=== PATIENT | female | born 1950 | race African-American/Black ===

== ENCOUNTER 2017-11-04 21:59 | Inpatient (IN) | payer MEDICARE, MEDICAID ==
[~2017-11-04] VITALS: Ht 167.6 cm; Wt 77.6 kg
[2017-11-05 04:34] LABS: CHLORIDE 107 mEq/L (98-107)
[2017-11-05 04:35] LABS: INR 2.6; PROTHROMBIN TIME 26.8 sec (9.4-11.6)
[2017-11-05 04:45] LABS: HEMATOCRIT. 34.1 % (36.0-48.0); HEMOGLOBIN. 11.8 g/dL (12.0-16.0); MEAN CORPUSCULAR HEMOGLOBIN 32.1 pg (28.0-32.0); MEAN PLATELET VOLUME 8.8 fl (7.4-10.4); PLATELET 343 x1000/uL (130-400); RED BLOOD CELL COUNT 3.67 mill/uL (4.2-5.4); RED CELL DISTRIBUTION WIDTH 17.3 % (11.6-14.6)
[2017-11-05 05:18] LABS: PLATELET ESTIMATE NORMAL
[2017-11-05 05:43] LABS: CLARITY URINE CLOUDY (CLEAR); COLOR URINE DARK YELLOW (YELLOW); KETONES URINE NEGATIVE (NEGATIVE); LEUKOCYTE ESTERASE URINE 3+ (NEGATIVE); NITRITE URINE POSITIVE (NEGATIVE); OCCULT BLOOD URINE 2+ (NEGATIVE); PH URINE 5.5 (4.5-8.0); PROTEIN URINE 1+ (NEGATIVE); SPECIFIC GRAVITY URINE 1.022 (1.005-1.030)
[2017-11-05] MEDS ORDERED: POTASSIUM CHLORIDE 20MEQ TABLET SR PO ONE ×2 (06:00→19:30)
[2017-11-05] MEDS ORDERED: KCL 20MEQ/100ML PREMIX 100 ML IV ONE ×2 (06:00)
[2017-11-05] MEDS ORDERED: CEPHALEXIN 500MG CAPSULE PO ONE (06:15)
[2017-11-05 09:08] VITALS: BP 123/63
[2017-11-05 09:17] VITALS: BP 123/63
[2017-11-05] MEDS ORDERED: ERGO400T7 PO (09:30)
[2017-11-05] MEDS ORDERED: CHLO25TA2 PO (09:30)
[2017-11-05] MEDS ORDERED: RIVA20TA PO (09:30)
[2017-11-05] MEDS ORDERED: AMLO5TAB88 PO (09:30)
[2017-11-05] MEDS ORDERED: GABA-529 PO (09:30)
[2017-11-05] MEDS ORDERED: BACL-141 PO (09:30)
[2017-11-05] MEDS ORDERED: CITA20TA75 PO (09:30)
[2017-11-05] MEDS ORDERED: IPRATROPIUM/ALBUTEROL 0.5-3(2.5)MG/3ML NEB INH PRN (11:45)
[2017-11-05] MEDS ORDERED: ACETAMINOPHEN 650MG SUPP PR PRN (11:45)
[2017-11-05] MEDS ORDERED: ONDANSETRON HCL 4MG/2ML VIAL IV PRN (11:45)
[2017-11-05] MEDS: PANTOPRAZOLE SODIUM 40 MG/VIAL IV SCH (12:07)
[2017-11-05 12:53] LABS: HEPATITIS B SURFACE ANTIGEN NEGATIVE
[2017-11-05] MEDS: SODIUM CHL 0.45% + KCL 20MEQ/L 1,000 ML IV SCH ×2 (13:00→14:25)
[2017-11-05] MEDS: PIPERACILLIN/TAZ 3.375G PREMIX 50 ML IV SCH ×3 (13:00→21:36)
[2017-11-05 13:21] LABS: HEPATITIS B CORE AB IGM NEGATIVE
[2017-11-05 13:23] LABS: HEPATITIS A AB IGM NEGATIVE (NEGATIVE)
[2017-11-05] MEDS ORDERED: IOHEXOL-300 100 ML BOTTLE ONE (14:15)
[2017-11-05 15:31] LABS: CHLORIDE 108 mEq/L (98-107)
[2017-11-05 16:00] VITALS: BP 185/127
[2017-11-05 17:53] LABS: *AMPHETAMINES SCREEN URINE NEGATIVE (NEGATIVE); *BARBITURATES SCREEN URINE NEGATIVE (NEGATIVE); *BENZODIAZEPINES SCREEN URINE NEGATIVE (NEGATIVE); *COCAINE SCREEN URINE NEGATIVE (NEGATIVE); METHADONE URINE SCREEN NEGATIVE (NEGATIVE)
[2017-11-05 17:54] LABS: CANNABINOID URINE SCREEN NEGATIVE (NEGATIVE); OPIATES URINE SCREEN NEGATIVE (NEGATIVE); PHENCYCLIDINE URINE SCREEN NEGATIVE (NEGATIVE)
[2017-11-05] MEDS ORDERED: POTASSIUM CHLORIDE 20MEQ TABLET SR PO NR (19:30)
[2017-11-05] MEDS ORDERED: POTASSIUM CHLORIDE INJ 40 MEQ in DEXT 5% WATER 250 ML IV NR (19:30)
[2017-11-05 20:00] VITALS: BP 108/75
[2017-11-06] VITALS (7 sets, daily range): BP systolic 92–111; BP diastolic 64–76
[2017-11-06] MEDS: PIPERACILLIN/TAZ 3.375G PREMIX 50 ML IV SCH ×3 (05:37→22:27)
[2017-11-06] MEDS: PANTOPRAZOLE SODIUM 40 MG/VIAL IV SCH (08:35)
[2017-11-06 09:03] LABS: INR 1.8
[2017-11-06 09:27] LABS: HEMATOCRIT. 35.7 % (36.0-48.0); HEMOGLOBIN. 12.2 g/dL (12.0-16.0); MEAN CORPUSCULAR HEMOGLOBIN 32.3 pg (28.0-32.0); MEAN CORPUSCULAR VOLUME 94.1 fL (81.0-99.0); MEAN PLATELET VOLUME 9.5 fl (7.4-10.4); PLATELET 356 x1000/uL (130-400); RED BLOOD CELL COUNT 3.79 mill/uL (4.2-5.4); RED CELL DISTRIBUTION WIDTH 17.3 % (11.6-14.6)
[2017-11-06 10:08] LABS: CHLORIDE 107 mEq/L (98-107)
[2017-11-06 10:28] LABS: LDL CHOLESTEROL 186 mg/dL (5-100)
[2017-11-06 10:30] LABS: HDL CHOLESTEROL 9 mg/dL (40-59)
[2017-11-06] MEDS ORDERED: POTASSIUM CHLORIDE INJ 40 MEQ in DEXT 5% WATER 250 ML IV ONE (11:15)
[2017-11-06] MEDS ORDERED: KCL 20MEQ/100ML PREMIX 100 ML IV SCH (12:30)
[2017-11-06] MEDS ORDERED: POTASSIUM CHLORIDE 20MEQ TABLET SR PO NR (13:15)
[2017-11-06 14:28] LABS: PLATELET ESTIMATE NORMAL
[2017-11-06] MEDS: SODIUM CHL 0.45% + KCL 20MEQ/L 1,000 ML IV SCH (15:15)
[2017-11-06] MEDS ORDERED: HYDROXYZINE 25MG TABLET PO NR (21:00)
[2017-11-06] MEDS ORDERED: FLUCONAZOLE 150MG TABLET PO NR (22:00)
[2017-11-07] VITALS (8 sets, daily range): BP systolic 97–138; BP diastolic 60–81
[2017-11-07] MEDS: PIPERACILLIN/TAZ 3.375G PREMIX 50 ML IV SCH ×3 (05:54→21:59)
[2017-11-07 06:59] LABS: INR 1.8; PROTHROMBIN TIME 18.6 sec (9.4-11.6)
[2017-11-07 07:17] LABS: HEMATOCRIT 29.8 % (36.0-48.0); HEMOGLOBIN 10.3 g/dL (12.0-16.0); MEAN CORPUSCULAR VOLUME 92.6 fL (81.0-99.0); PLATELET 310 x1000/uL (130-400); RED BLOOD CELL COUNT 3.22 mill/uL (4.2-5.4); RED CELL DISTRIBUTION WIDTH 17.7 % (11.6-14.6)
[2017-11-07 07:54] LABS: CHLORIDE 110 mEq/L (98-107)
[2017-11-07] MEDS: FAMOTIDINE 20MG/2ML VIAL IV SCH ×2 (08:53→21:59)
[2017-11-07] MEDS: SODIUM CHL 0.45% + KCL 20MEQ/L 1,000 ML IV SCH (13:03)
[2017-11-07] MEDS: HYDROXYZINE 25MG TABLET PO PRN (22:19)
[2017-11-08] VITALS (30 sets, daily range): BP systolic 83–136; BP diastolic 57–90
[2017-11-08] MEDS: PIPERACILLIN/TAZ 3.375G PREMIX 50 ML IV SCH ×3 (06:52→21:20)
[2017-11-08] MEDS: FAMOTIDINE 20MG/2ML VIAL IV SCH ×2 (08:58→21:20)
[2017-11-08] MEDS ORDERED: SODIUM BICARBONATE 4% (2.4MEQ) 5ML VIAL IV ONE (09:41)
[2017-11-08] MEDS ORDERED: IOHEXOL-300 50 ML BOTTLE IV ONE (09:42)
[2017-11-08] MEDS ORDERED: LIDOCAINE HCL 1% 20ML VIAL (Pyxis) INJ ONE (09:42)
[2017-11-08] MEDS ORDERED: FENTANYL CITRATE/PF 50MCG/ML 2ML VIAL ONE ×2 (09:59→10:48)
[2017-11-08] MEDS ORDERED: MIDAZOLAM HCL 2 MG/2 ML VIAL ONE (09:59)
[2017-11-08 10:28] LABS: HEMATOCRIT 29.7 % (36.0-48.0); HEMOGLOBIN 10.4 g/dL (12.0-16.0); INR 1.5; MEAN CORPUSCULAR HEMOGLOBIN 32.4 pg (28.0-32.0); MEAN CORPUSCULAR VOLUME 92.8 fL (81.0-99.0); PLATELET 309 x1000/uL (130-400); PROTHROMBIN TIME 16.1 sec (9.4-11.6)
[2017-11-08 10:42] LABS: CHLORIDE 108 mEq/L (98-107)
[2017-11-08] MEDS ORDERED: ATROPINE SULFATE 1MG/10ML SYR ONE (10:42)
[2017-11-08] MEDS ORDERED: MIDAZOLAM HCL 2 MG/2 ML VIAL IV ONE (11:00)
[2017-11-08] MEDS ORDERED: FENTANYL CITRATE/PF 50MCG/ML 2ML VIAL IV ONE (11:00)
[2017-11-08] MEDS: SODIUM CHL 0.45% + KCL 20MEQ/L 1,000 ML IV SCH (15:39)
[2017-11-09 00:10] VITALS: BP 119/82
[2017-11-09 04:12] VITALS: BP 118/66
[2017-11-09] MEDS: SODIUM CHL 0.45% + KCL 20MEQ/L 1,000 ML IV SCH ×2 (05:11→22:42)
[2017-11-09] MEDS: PIPERACILLIN/TAZ 3.375G PREMIX 50 ML IV SCH ×2 (05:11→14:22)
[2017-11-09 07:46] LABS: HEMATOCRIT 33.3 % (36.0-48.0); HEMOGLOBIN 11.3 g/dL (12.0-16.0); MEAN CORPUSCULAR HEMOGLOBIN 31.5 pg (28.0-32.0); MEAN CORPUSCULAR VOLUME 92.6 fL (81.0-99.0); PLATELET 325 x1000/uL (130-400); RED CELL DISTRIBUTION WIDTH 17.8 % (11.6-14.6)
[2017-11-09] MEDS: FAMOTIDINE 20MG/2ML VIAL IV SCH ×2 (07:53→20:39)
[2017-11-09 07:58] VITALS: BP 107/66
[2017-11-09 08:56] LABS: CHLORIDE 108 mEq/L (98-107)
[2017-11-09] MEDS ORDERED: POTASSIUM CHLORIDE 20MEQ TABLET SR PO SCH (10:15)
[2017-11-09 11:40] VITALS: BP 112/68
[2017-11-09 16:00] VITALS: BP 119/87
[2017-11-09 20:00] VITALS: BP 130/85
[2017-11-10] VITALS: BP 136/90
[2017-11-10] MEDS: PIPERACILLIN/TAZ 3.375G PREMIX 50 ML IV SCH ×4 (00:13→21:53)
[2017-11-10 04:06] VITALS: BP 108/66
[2017-11-10] MEDS: HYDROXYZINE 25MG TABLET PO PRN ×2 (04:42→22:32)
[2017-11-10 08:00] VITALS: BP 103/67
[2017-11-10] MEDS: FAMOTIDINE 20MG/2ML VIAL IV SCH ×2 (09:08→21:42)
[2017-11-10] MEDS ORDERED: DIATR MEGLU/DIATRIZOATE SOLN 30ML PO SCH (10:15)
[2017-11-10] MEDS ORDERED: DIATR MEGLU/DIATRIZOATE SOLN 30ML PO ONE (10:30)
[2017-11-10 11:07] LABS: BASOPHILS % 0.8 % (0.0-2.0); HEMATOCRIT. 28.5 % (36.0-48.0); HEMOGLOBIN. 9.7 g/dL (12.0-16.0); MEAN CORPUSCULAR HEMOGLOBIN 32.1 pg (28.0-32.0); MEAN CORPUSCULAR VOLUME 94.4 fL (81.0-99.0); MEAN PLATELET VOLUME 9.1 fl (7.4-10.4); MONOCYTES % 5.6 % (2.0-8.0); NEUTROPHILS % 70.6 % (40.0-76.0); PLATELET 269 x1000/uL (130-400); RED BLOOD CELL COUNT 3.02 mill/uL (4.2-5.4); RED CELL DISTRIBUTION WIDTH 18.2 % (11.6-14.6)
[2017-11-10 12:00] VITALS: BP 113/77
[2017-11-10] MEDS: SODIUM CHL 0.45% + KCL 20MEQ/L 1,000 ML IV SCH ×2 (13:00→22:22)
[2017-11-10] MEDS ORDERED: IOHEXOL-300 100 ML BOTTLE ONE (14:21)
[2017-11-10] MEDS: MORPHINE SULFATE 4 MG/ML CPJ (NOT FOR IM USE) IV PRN ×2 (16:22→21:44)
[2017-11-10 16:35] LABS: CHLORIDE 107 mEq/L (98-107)
[2017-11-10 20:00] VITALS: BP 115/65
[2017-11-11] VITALS (16 sets, daily range): BP systolic 93–116; BP diastolic 50–88
[2017-11-11] MEDS: PIPERACILLIN/TAZ 3.375G PREMIX 50 ML IV SCH ×3 (05:50→22:06)
[2017-11-11 06:48] LABS: HEMOGLOBIN 9.7 g/dL (12.0-16.0); MEAN CORPUSCULAR HEMOGLOBIN 32.5 pg (28.0-32.0); MEAN CORPUSCULAR VOLUME 94.1 fL (81.0-99.0); PLATELET 275 x1000/uL (130-400); RED BLOOD CELL COUNT 2.98 mill/uL (4.2-5.4); RED CELL DISTRIBUTION WIDTH 17.9 % (11.6-14.6)
[2017-11-11 06:52] LABS: CHLORIDE 108 mEq/L (98-107)
[2017-11-11 07:13] LABS: AMYLASE 236 IU/L (25-115)
[2017-11-11] MEDS: FAMOTIDINE 20MG/2ML VIAL IV SCH ×2 (09:42→21:04)
[2017-11-11] MEDS: MORPHINE SULFATE 4 MG/ML CPJ (NOT FOR IM USE) IV PRN (09:43)
[2017-11-11] MEDS ORDERED: IOHEXOL-300 50 ML BOTTLE IV ONE (13:16)
[2017-11-11] MEDS ORDERED: LIDOCAINE HCL 1% 20ML VIAL (Pyxis) INJ ONE (13:16)
[2017-11-11] MEDS ORDERED: SODIUM BICARBONATE 4% (2.4MEQ) 5ML VIAL IV ONE (13:16)
[2017-11-11] MEDS ORDERED: FENTANYL CITRATE/PF 50MCG/ML 2ML VIAL ONE (13:16)
[2017-11-11] MEDS ORDERED: FENTANYL CITRATE/PF 50MCG/ML 2ML VIAL IV SCH (14:35)
[2017-11-11] MEDS: SODIUM CHL 0.45% + KCL 20MEQ/L 1,000 ML IV SCH (16:07)
[2017-11-12 00:03] VITALS: BP 125/77
[2017-11-12 04:30] VITALS: BP 99/67
[2017-11-12] MEDS: SODIUM CHL 0.45% + KCL 20MEQ/L 1,000 ML IV SCH ×2 (05:00→21:18)
[2017-11-12] MEDS: PIPERACILLIN/TAZ 3.375G PREMIX 50 ML IV SCH (05:24)
[2017-11-12 06:38] LABS: INR 1.4; PARTIAL THROMBOPLASTIN TIME 26.4 sec (23.4-31.0); PROTHROMBIN TIME 14.9 sec (9.4-11.6)
[2017-11-12 06:53] LABS: CHLORIDE 109 mEq/L (98-107)
[2017-11-12 07:18] LABS: BASOPHILS % 0.7 % (0.0-2.0); HEMATOCRIT. 30.1 % (36.0-48.0); HEMOGLOBIN. 10.2 g/dL (12.0-16.0); LYMPHOCYTES % 24.2 % (20.0-50.0); MEAN CORPUSCULAR HEMOGLOBIN 32.5 pg (28.0-32.0); MEAN CORPUSCULAR VOLUME 95.7 fL (81.0-99.0); MEAN PLATELET VOLUME 8.9 fl (7.4-10.4); MONOCYTES % 7.2 % (2.0-8.0); NEUTROPHILS % 66.9 % (40.0-76.0); PLATELET 296 x1000/uL (130-400); RED BLOOD CELL COUNT 3.14 mill/uL (4.2-5.4); RED CELL DISTRIBUTION WIDTH 17.2 % (11.6-14.6)
[2017-11-12 07:30] VITALS: BP 114/72
[2017-11-12] MEDS: FAMOTIDINE 20MG/2ML VIAL IV SCH ×2 (09:12→21:18)
[2017-11-12 11:31] VITALS: BP 104/68
[2017-11-12] MEDS ORDERED: IOHEXOL-300 100 ML BOTTLE ONE (11:34)
[2017-11-12] MEDS ORDERED: SIMETHICONE 40 MG/0.6 ML 30ML ONE (11:34)
[2017-11-12 16:00] VITALS: BP 107/71
[2017-11-12] MEDS ORDERED: PROPOFOL 200MG/20ML VIAL IV ONE ×2 (17:16→17:43)
[2017-11-12] MEDS ORDERED: ROCURONIUM BROMIDE 10MG/ML VIAL 5ML IV ONE (17:26)
[2017-11-12] MEDS ORDERED: GLYCOPYRROLATE 0.2 MG/ML 2ML VIAL ONE (18:12)
[2017-11-12] MEDS ORDERED: NEOSTIGMINE METHYLSULFATE 1MG/ML 10 ML VIAL ONE (18:12)
[2017-11-12] MEDS ORDERED: ONDANSETRON HCL 4MG/2ML VIAL IV PRN (18:45)
[2017-11-12 20:00] VITALS: BP 137/84
[2017-11-12] MEDS: MORPHINE SULFATE 4 MG/ML CPJ (NOT FOR IM USE) IV PRN (21:30)
[2017-11-13] VITALS: BP 126/84
[2017-11-13 04:00] VITALS: BP 108/78
[2017-11-13 07:03] LABS: HEMATOCRIT 31.5 % (36.0-48.0); HEMOGLOBIN 10.7 g/dL (12.0-16.0); MEAN CORPUSCULAR HEMOGLOBIN 32.1 pg (28.0-32.0); PLATELET 345 x1000/uL (130-400); RED BLOOD CELL COUNT 3.32 mill/uL (4.2-5.4); RED CELL DISTRIBUTION WIDTH 17.2 % (11.6-14.6)
[2017-11-13 07:21] LABS: CHLORIDE 111 mEq/L (98-107)
[2017-11-13 08:00] VITALS: BP 131/83
[2017-11-13] MEDS: FAMOTIDINE 20MG/2ML VIAL IV SCH ×2 (09:13→20:24)
[2017-11-13 12:00] VITALS: BP 115/79
[2017-11-13 16:00] VITALS: BP 138/82
[2017-11-13 20:00] VITALS: BP 108/87
[2017-11-14] VITALS: BP 135/92
[2017-11-14 04:00] VITALS: BP 119/93
[2017-11-14 08:00] VITALS: BP 131/89
[2017-11-14] MEDS: FAMOTIDINE 20MG/2ML VIAL IV SCH (08:47)
[2017-11-14 12:00] VITALS: BP 110/76
[2017-11-14 13:21] VITALS: BP 110/76
== END 2017-11-14 14:15 | disposition home health service (06) | DRG 435 ==
LOC: ER 21:59 → OBSVTOIN 11-05 06:20 → 8WST 11-05 06:20 → INTOOBSV 11-05 06:20 → ENRESERV 11-05 06:54 → 8WST 11-05 10:34
PROVIDERS: ADMIT Internal Medicine; ATTEND Internal Medicine
PROC: 30233L1 Transfusion of Nonautologous Fresh Plasma into Peripheral Vein, Percutaneous Approach (ICD-10-PCS; principal; 2017-11-07)
PROC: 30233K1 Transfusion of Nonautologous Frozen Plasma into Peripheral Vein, Percutaneous Approach (ICD-10-PCS; 2017-11-07)
PROC: BF101ZZ Fluoroscopy of Bile Ducts using Low Osmolar Contrast (ICD-10-PCS; 2017-11-08)
PROC: 0FB93ZX Excision of Common Bile Duct, Percutaneous Approach, Diagnostic (ICD-10-PCS; 2017-11-08)
PROC: 0F9930Z Drainage of Common Bile Duct with Drainage Device, Percutaneous Approach (ICD-10-PCS; 2017-11-08)
PROC: 0F9G30Z Drainage of Pancreas with Drainage Device, Percutaneous Approach (ICD-10-PCS; 2017-11-11)
PROC: 0DB98ZX Excision of Duodenum, Via Natural or Artificial Opening Endoscopic, Diagnostic (ICD-10-PCS; 2017-11-12)
DX: C25.0 Malignant neoplasm of head of pancreas (principal); K83.1 Obstruction of bile duct; K85.90 Acute pancreatitis without necrosis or infection, unspecified; N39.0 Urinary tract infection, site not specified; D68.9 Coagulation defect, unspecified; E44.0 Moderate protein-calorie malnutrition; E87.6 Hypokalemia; K31.89 Other diseases of stomach and duodenum; N81.4 Uterovaginal prolapse, unspecified; D64.9 Anemia, unspecified; E78.5 Hyperlipidemia, unspecified; N76.0 Acute vaginitis; G47.00 Insomnia, unspecified; I10 Essential (primary) hypertension; K76.9 Liver disease, unspecified; L29.9 Pruritus, unspecified; M19.90 Unspecified osteoarthritis, unspecified site; R16.0 Hepatomegaly, not elsewhere classified; Z53.29 Procedure and treatment not carried out because of patient's decision for other reasons; Z87.891 Personal history of nicotine dependence; Z86.718 Personal history of other venous thrombosis and embolism; Z88.8 Allergy status to other drugs, medicaments and biological substances; Z79.01 Long term (current) use of anticoagulants; Z68.27 Body mass index [BMI] 27.0-27.9, adult; Z87.81 Personal history of (healed) traumatic fracture
CPT/HCPCS: 36415; 47534; 47536; 74177; 74181; 76705; 77002; 80053; 80061; 80076; 80305; 81003; 82105; 82150; 82248; 82378; 83036; 83690; 84132; 84439; 84443; 85025; 85027; 85610; 85730; 86301; 86705; 86709; 86803; 86850; 86900; 86927; 87040; 87086; 87340; 88305; 93005; 93970; 97162; 99152; 99153; 99285; C1725; C1726; C1729; C1766; C1769; C1893; C9113; J0461; J2250; J2270; J2405; J2543; J2704; J2710; J3010; J3480; J3490; J7030; J7040; J7050; J7060; P9017; Q9963; Q9967